=== PATIENT | male | born 2000 | race African-American/Black ===

== ENCOUNTER 2022-05-24 18:32 | Emergency (ER) | payer BC | END 2022-05-24 19:30 | disposition home or self-care (01) | LOC: CSHERS 18:32 | DX: R20.2 Paresthesia of skin (principal); I10 Essential (primary) hypertension | CPT/HCPCS: 99283 ==

== ENCOUNTER 2022-08-07 14:57 | Outpatient (CLI) | payer BC | END 2022-08-07 14:58 | disposition home or self-care (01) | LOC: CSHMRI 14:57 | PROVIDERS: ATTEND Neurological Surgery | DX: M54.16 Radiculopathy, lumbar region (principal); R29.898 Other symptoms and signs involving the musculoskeletal system; M51.36 Other intervertebral disc degeneration, lumbar region; M51.37 Other intervertebral disc degeneration, lumbosacral region; M53.82 Other specified dorsopathies, cervical region | CPT/HCPCS: 72120; 72131; 72141 ==